=== PATIENT | male | born 1930 | race Caucasian/White ===

== ENCOUNTER 2018-10-10 12:27 | Inpatient (IN) | payer OTHER ==
[~2018-10-10] VITALS: Ht 177.8 cm; Wt 95.3 kg
[~2018-10-10 12:27] MED LIST: FOLIC ACID1 MG; LEFLUNOMIDE20 MG; PROSCAR5 MG; SYNTHROID175 MCG; TAMS0.4C
[2018-10-10] MEDS ORDERED: LOSARTAN POTASS25 MG (13:22)
[2018-10-10] MEDS ORDERED: ELIQUIS5 MG (13:22)
[2018-10-10] MEDS ORDERED: TOPROL XL50 MG (13:23)
== END 2018-10-17 13:50 | disposition home or self-care (01) | DRG 392 ==
LOC: ER 12:27 → MEDJ 10-11 01:01
PROVIDERS: ADMIT Internal Medicine
PROC: B020ZZZ Computerized Tomography (CT Scan) of Brain (ICD-10-PCS; principal; 2018-10-11)
PROC: 4A12X4Z Monitoring of Cardiac Electrical Activity, External Approach (ICD-10-PCS; 2018-10-11)
PROC: 8E0ZXY6 Isolation (ICD-10-PCS; 2018-10-11)
PROC: B246ZZZ Ultrasonography of Right and Left Heart (ICD-10-PCS; 2018-10-13)
PROC: CW1N1ZZ Planar Nuclear Medicine Imaging of Whole Body using Technetium 99m (Tc-99m) (ICD-10-PCS; 2018-10-14)
PROC: B54MZZZ Ultrasonography of Right Upper Extremity Veins (ICD-10-PCS; 2018-10-15)
DX: K52.89 Other specified noninfective gastroenteritis and colitis (principal); R65.10 Systemic inflammatory response syndrome (SIRS) of non-infectious origin without acute organ dysfunction; R78.81 Bacteremia; I95.89 Other hypotension; R55 Syncope and collapse; E86.0 Dehydration; E11.9 Type 2 diabetes mellitus without complications; I10 Essential (primary) hypertension; E87.8 Other disorders of electrolyte and fluid balance, not elsewhere classified; B95.7 Other staphylococcus as the cause of diseases classified elsewhere; B35.1 Tinea unguium; Z79.4 Long term (current) use of insulin

== ENCOUNTER 2019-01-11 21:51 | Emergency (ER) | payer OTHER ==
[~2019-01-11] VITALS: Ht 177.8 cm; Wt 81.6 kg
[~2019-01-11 21:51] MED LIST changes: +ELIQUIS5 MG; +LOSARTAN POTASS25 MG; +TOPROL XL50 MG
[2019-01-11] MEDS ORDERED: MIRTAZAPINE7.5 MG (22:07)
[2019-01-11] MEDS ORDERED: BETHANECHOL CHLO5 MG (22:08)
[2019-01-11] MEDS ORDERED: ASPIR 8181 MG (22:08)
[2019-01-11] MEDS ORDERED: AMBIEN5 MG (22:08)
== END 2019-01-11 23:30 | disposition home or self-care (01) ==
LOC: ER 21:51
DX: N99.518 Other cystostomy complication (principal)

== ENCOUNTER 2019-03-11 18:53 | Inpatient (IN) | payer OTHER ==
[~2019-03-11] VITALS: Ht 180.3 cm; Wt 81.6 kg
[~2019-03-11 18:53] MED LIST changes: +AMBIEN5 MG; +ASPIR 8181 MG; +BETHANECHOL CHLO5 MG; +MIRTAZAPINE7.5 MG
--- NOTE | 2019-03-11 19:13 | NUR ---
PTE SE RECIBE POR PAIN BODY PART EN EL CUERPO DEBILIDAD Y NO COME REFIERE PARAMEDICO Y FAMILIAR.
--- NOTE | 2019-03-11 20:06 | NUR ---
PTE ES EVALUADO POR DRA. MORGAN. SE EDUCA A PTE Y FAMILIAR SOBRE ORDENES MEDICAS Y REFIEREN ENTENDER. SE REALIZAN MUESTRAS DE LABORATORIO BAJO MEDIDAS ASEPTICAS Y SON ENVIADAS A LABORATORIO. PTE PENDIENTE A SONOGRAMA ABDOMINAL. PTE EN NPO
--- NOTE | 2019-03-12 02:49 | NUR ---
PTE ALERTA Y ORIENTADO X 3 ESFERAS,SE OBSERVA INTRANQUILO,EN CAMA CON BARANDAS ELEVADAS.EN COMPANIA DE FAMILIAR,AREA DE VENOPUNCION PATENTE Y GUDELIA DE EDEMA CON FLUIDOS DE MANTENIMIENTO BAJANDO SIN DIFICULTAD.SE LE EXTRAEN MUESTRAS BAJO MEDIDAS ASEPTICAS.SE LE REALIZA SONOGRAMA "BEDSIDE".SE ISABEL BAJO OBSERVACION POR CAMBIOS.
--- NOTE | 2019-03-12 09:50 | NUR ---
PACIENTE ALERTA Y ACTIVO EN COMPANIA DE FAMILIAR. SE OBSERVA IVF'S PATENTE GUDELIA DE EDEMA Y ENROJECIMIENTO BAJANDO UN D5-.45NSS + MVI @ 150ML/HR. PAC0 ENTE
--- NOTE | 2019-03-12 09:51 | NUR ---
PENDIENTE CONSULTA CON DR. Debora STILES.
[2019-03-29] MEDS ORDERED: QUETIAPINE FUMA25 MG PO (14:45)
== END 2019-03-29 18:54 | DRG 423 ==
LOC: ER 18:53 → ICU 03-12 10:01 → MEDJ 03-12 10:01 → ICU-2 03-12 10:01 → ICU 03-13 22:52 → MEDJ 03-23 13:00
PROVIDERS: ADMIT Internal Medicine
PROC: B246ZZZ Ultrasonography of Right and Left Heart (ICD-10-PCS; 2019-03-12)
PROC: BW28ZZZ Computerized Tomography (CT Scan) of Head (ICD-10-PCS; 2019-03-12)
PROC: 0T9B70Z Drainage of Bladder with Drainage Device, Via Natural or Artificial Opening (ICD-10-PCS; 2019-03-12)
PROC: B44HZZZ Ultrasonography of Bilateral Lower Extremity Arteries (ICD-10-PCS; 2019-03-15)
PROC: 02HV33Z Insertion of Infusion Device into Superior Vena Cava, Percutaneous Approach (ICD-10-PCS; 2019-03-16)
PROC: 5A09457 Assistance with Respiratory Ventilation, 24-96 Consecutive Hours, Continuous Positive Airway Pressure (ICD-10-PCS; 2019-03-16)
PROC: 3E0436Z Introduction of Nutritional Substance into Central Vein, Percutaneous Approach (ICD-10-PCS; 2019-03-16)
PROC: 0JBR0ZZ Excision of Left Foot Subcutaneous Tissue and Fascia, Open Approach (ICD-10-PCS; principal; 2019-03-18)
PROC: 4A12X4Z Monitoring of Cardiac Electrical Activity, External Approach (ICD-10-PCS; 2019-03-22)
DX: K72.00 Acute and subacute hepatic failure without coma (principal); A41.9 Sepsis, unspecified organism; N17.8 Other acute kidney failure; Q61.02 Congenital multiple renal cysts; R65.10 Systemic inflammatory response syndrome (SIRS) of non-infectious origin without acute organ dysfunction; N39.0 Urinary tract infection, site not specified; D68.8 Other specified coagulation defects; I50.42 Chronic combined systolic (congestive) and diastolic (congestive) heart failure; I96 Gangrene, not elsewhere classified; E44.0 Moderate protein-calorie malnutrition; J98.11 Atelectasis; I70.293 Other atherosclerosis of native arteries of extremities, bilateral legs; I11.0 Hypertensive heart disease with heart failure; I25.10 Atherosclerotic heart disease of native coronary artery without angina pectoris; I48.2 Chronic atrial fibrillation; E03.8 Other specified hypothyroidism; R31.0 Gross hematuria; N40.0 Benign prostatic hyperplasia without lower urinary tract symptoms; R41.82 Altered mental status, unspecified; E87.5 Hyperkalemia; T68.XXXA Hypothermia, initial encounter; R23.0 Cyanosis; L97.529 Non-pressure chronic ulcer of other part of left foot with unspecified severity; Z79.01 Long term (current) use of anticoagulants; Z66 Do not resuscitate